=== PATIENT | male | born 1970 | race Caucasian/White ===

== ENCOUNTER 2020-08-05 18:28 | Emergency (ER) | payer MEDICAID ==
[2020-08-05 19:14] LABS: BASO # 0.02 (0.02-0.10); HEMATOCRIT 46.1 % (42.0-52.0); HEMOGLOBIN 15.5 g/dL (13.5-18.0); LYMPH# 0.57 (1.50-4.00); MEAN CELL VOLUME 84 fl (78-100); MEAN CORPUSCULAR HEMOGLOBIN 28 pg (27-31); MEAN CORPUSCULAR HGB CONC 34 g/dL (33-37); MEAN PLATELET VOLUME 9.5 fl (7.4-10.4); MONO # 0.57 (0.20-0.80); NEU # 5.97 (1.40-6.50); PLATELET COUNT 207 K/mm3 (130-400); RED BLOOD COUNT 5.47 M/mm3 (4.20-5.60); RED CELL DISTRIBUTION WIDTH 14.5 % (11.5-14.5); WHITE BLOOD COUNT 7.2 K/mm3 (4.8-10.8)
[2020-08-05 19:20] LABS: ALBUMIN 3.3 g/dL (3.5-5.0)
[2020-08-05 19:21] LABS: POTASSIUM 3.1 mmol/L (3.5-5.1)
[2020-08-05 19:22] LABS: CALCIUM 8.1 mg/dL (8.3-10.5)
[2020-08-05 19:23] LABS: TOTAL PROTEIN 6.8 g/dL (6.4-8.3)
[2020-08-05 19:25] LABS: TOTAL BILIRUBIN 0.9 mg/dL (0.2-1.2)
[2020-08-05 20:21] LABS: LYMPHOCYTE 9 % (20-51); MONOCYTE 7 % (3-10); NEUTROPHILS 84 % (42-75)
[2020-08-05 21:05] LABS: TROPONIN-I 0.11 ng/mL (<0.030)
[2020-08-05 22:21] VITALS: BP 118/71
== END 2020-08-05 22:22 | disposition short-term general hospital (02) ==
LOC: ED 18:28
PROVIDERS: Nurse Practitioner
DX: U07.1 COVID-19 (principal); I44.7 Left bundle-branch block, unspecified; R74.8 Abnormal levels of other serum enzymes
CPT/HCPCS: J2405; J7030